=== PATIENT | female | born 1945 | race Caucasian/White ===

== ENCOUNTER → 2019-02-07 | Outpatient (CLI) | payer OTHER ==
--- NOTE | 2019-02-07 10:40 | 2DMMODE ---
[facility] [employer] [place] [address] 2 D/M-MODE ECHOCARDIOGRAM Name: ALEXSANDERMARCELLUS AMATO Room #: REG CL [facility]#: [id number] ������������� Admission: 02/07/19 ������������� Attend Phys: Ky Oneill MD, Discharge: ��� ������������� ��� Date of : 41 �������������������� �� Report #: [id number] �������� ��������������������������������������������[id number] THIS REPORT FOR: //name// APPROVED REPORT Study performed: 02/07/2019 08:20:21 EXAM: Comprehensive 2D, Doppler, and color-flow Echocardiogram Patient Location: Out-Patient Status: routine BSA: 1.58 HR: 69 bpm BP: 144/60 mmHg Rhythm: NSR Other Information Study Quality: Good Indications CAD, HTN. Hx: Pacemaker, stents. 2D Dimensions RVDd: 36.22 mm IVSd: 10.00 (7-11mm) LVOT Diam: 19.38 (18-24mm) LVDd: 35.51 mm PWd: 9.69 (7-11mm) Ascending Ao: 27.94 (22-36mm) LVDs: 20.42 (25-40mm) Aortic Root: 29.14 mm Volumes Left Atrial Volume (Systole) Single Plane 4CH: 50.05 mL Single Plane 2CH: 46.95 mL LA ESV Index: 33.00 mL/m2 Aortic Valve AoV Peak Jeff.: 1.87 m/s AO Peak Gr.: 12.18 mmHg LVOT Max P.20 mmHg AO Mean Gr.: 7.55 mmHg AO V2 Mean: 1.31 m/s LVOT Max V: 1.24 m/s AO V2 VTI: 41.21 cm BINDU Vmax: 1.97 cm2 Mitral Valve MV Decel. Time: 343.53 ms [facility] [address] [place] [address] 2 D/M-MODE ECHOCARDIOGRAM Name: WALDEMAR DIAMANTEMARCELLUS KENJI Room #: REG [facility]#: [id number] ������������� Admission: 02/07/19 ������������� Attend Phys: Ky Oneill MD, Discharge: ��� ������������� ��� Date of : 41 �������������������� �� Report #: [id number] �������� ��������������������������������������������[id number] MV PHT: 99.62 ms IVRT: 79.58 ms Pulmonary Valve PV Peak Jeff.: 1.07 m/s PV Peak Gr.: 4.56 mmHg Pulmonary Vein P Vein S: 0.46 m/s P Vein A: 0.34 m/s P Vein D: 0.28 m/s P Vein A Dur.: 76.1 msec P Vein S/D Ratio: 1.64 Tricuspid Valve TR Peak Jeff.: 2.80 m/s RAP Estimate: 5.00 mmHg TR Peak Gr.: 31.00 mmHg PA Pressure: 36.00 mmHg Left Ventricle The left ventricle is normal size. There is normal LV segmental wall motion. Mild concentric left ventricular hypertrophy. The left ventricular systolic function is normal. LVEF is 65%. Mild diastolic dysfunction is present (impaired relaxation pattern). Right Ventricle The right ventricle is normal size. The right ventricular systolic function is normal. Pacemaker lead is present in the right ventricle. Atria Left atrium is mildly dilated. The right atrium size is normal. Aortic Valve The aortic valve is normal in structure; mildly calcified. No aortic regurgitation is present. There is no aortic valvular stenosis. Mitral Valve The mitral valve is normal in structure. Moderate mitral annular calcification. Mild mitral regurgitation. No evidence of mitral valve stenosis. Tricuspid Valve The tricuspid valve is normal in structure. Mild to moderate tricuspid regurgitation. Estimated PAP is 35-40mmHg. Pulmonic Valve The pulmonary valve is normal in structure. Trace pulmonic [address] [address] 2 D/M-MODE ECHOCARDIOGRAM Name: ALEXSANDERMARCELLUS AMATO Room #: REG CL [facility]#: [id number] ������������� Admission: 02/07/19 ������������� Attend Phys: Ky Oneill MD, Discharge: ��� ������������� ��� Date of : 41 �������������������� �� Report #: [id number] �������� ��������������������������������������������[id number] regurgitation. Great Vessels The aortic root is normal in size. The ascending aorta is normal in size. IVC is normal in size and collapses >50% with inspiration. Pericardium There is no pericardial effusion. <Conclusion> The left ventricle is normal size. Mild concentric left ventricular hypertrophy. The left ventricular systolic function is normal. Mild diastolic dysfunction is present (impaired relaxation pattern). The right ventricle is normal size. Pacemaker lead is present in the right ventricle. Left atrium is mildly dilated. The aortic valve is normal in structure; mildly calcified. Moderate mitral annular calcification. Mild mitral regurgitation. Mild to moderate tricuspid regurgitation. Estimated PAP is 35-40mmHg. ��������������������������������������������� <ELECTRONICALLY SIGNED> ���������������������������������������� By: Wing Puga MD ��������������������������������������������� 02/07/19 1040 1040 1040 Wing Puga MD /INF
== END ==
LOC: CV 08:09
DX: I08.3 Combined rheumatic disorders of mitral, aortic and tricuspid valves (principal); I25.10 Atherosclerotic heart disease of native coronary artery without angina pectoris; I11.9 Hypertensive heart disease without heart failure; Z95.0 Presence of cardiac pacemaker; Z95.818 Presence of other cardiac implants and grafts

== ENCOUNTER 2020-10-02 18:46 | Emergency (ER) | payer OTHER ==
[~2020-10-02] VITALS: Ht 152.4 cm; Wt 52.2 kg
[2020-10-02] MEDS ORDERED: TYLENOL325 M1 PO (19:20)
[2020-10-02] MEDS ORDERED: ALPRAZOLAM 0.50.5 M1 PO (19:20)
[2020-10-02] MEDS ORDERED: NORVASC 2.5 MG2.5 M1 PO (19:21)
[2020-10-02] MEDS ORDERED: BREO ELLIPTA 11 EACH INH (19:21)
[2020-10-02] MEDS ORDERED: ASA81BEC PO (19:21)
[2020-10-02] MEDS ORDERED: LIPITOR 40 MG T40 M1 PO (19:21)
[2020-10-02] MEDS ORDERED: PLAVIX 75 MG TA75 MG PO (19:22)
[2020-10-02] MEDS ORDERED: BUPROPION XL300 MG PO (19:22)
[2020-10-02] MEDS ORDERED: CARVEDILOL12.5 MG PO (19:22)
[2020-10-02] MEDS ORDERED: COENZYME Q-10200 MG PO (19:22)
[2020-10-02] MEDS ORDERED: LEXAPRO20 MG PO (19:23)
[2020-10-02] MEDS ORDERED: ARICEPT10 M1 PO (19:23)
[2020-10-02] MEDS ORDERED: OMEGA-3 FISH1200 MG PO (19:24)
[2020-10-02] MEDS ORDERED: FERRETTS325 MG PO (19:24)
[2020-10-02] MEDS ORDERED: NORCO5 PO (19:24)
[2020-10-02] MEDS ORDERED: NAMENDA 10 MG T10 MG PO (19:25)
[2020-10-02] MEDS ORDERED: NITROSTAT0.4 M1 SUBLING (19:25)
[2020-10-02] MEDS ORDERED: MELATONIN3 M2 PO (19:25)
[2020-10-02] MEDS ORDERED: IMDUR 30 MG TAB30 M1 PO (19:25)
[2020-10-02] MEDS ORDERED: THERAGRAN-M PR1 EAC1 PO (19:26)
[2020-10-02] MEDS ORDERED: SEROQUEL 25 MG25 M1 PO (19:26)
[2020-10-02] MEDS ORDERED: PROTONIX40 M2 PO (19:26)
[2020-10-02] MEDS ORDERED: TIZANIDINE HCL2 M1 PO (19:27)
[2020-10-02] MEDS ORDERED: TRAMADOL 50 MG50 MG PO (19:28)
[2020-10-02 19:41] VITALS: BP 190/75
[2020-10-02] MEDS ORDERED: LOTENSIN10 MG PO (23:32)
== END 2020-10-02 20:00 ==
LOC: ER 18:46
DX: F32.9 Major depressive disorder, single episode, unspecified (principal); Z20.822 Contact with and (suspected) exposure to COVID-19; K21.9 Gastro-esophageal reflux disease without esophagitis; I10 Essential (primary) hypertension; J44.9 Chronic obstructive pulmonary disease, unspecified; Z90.710 Acquired absence of both cervix and uterus; Z98.890 Other specified postprocedural states; Z88.0 Allergy status to penicillin

== ENCOUNTER 2020-10-02 20:18 | Inpatient (IN) | payer OTHER ==
[~2020-10-02] VITALS: Ht 152.4 cm; Wt 56.7 kg
[~2020-10-02 20:18] MED LIST: ALPRAZOLAM 0.50.5 M1 PO; ARICEPT10 M1 PO; ASA81BEC PO; BREO ELLIPTA 11 EACH INH; BUPROPION XL300 MG PO; CARVEDILOL12.5 MG PO; COENZYME Q-10200 MG PO; FERRETTS325 MG PO; IMDUR 30 MG TAB30 M1 PO; LEXAPRO20 MG PO; LIPITOR 40 MG T40 M1 PO; MELATONIN3 M2 PO; NAMENDA 10 MG T10 MG PO; NITROSTAT0.4 M1 SUBLING; NORCO5 PO; NORVASC 2.5 MG2.5 M1 PO; OMEGA-3 FISH1200 MG PO; PLAVIX 75 MG TA75 MG PO; PROTONIX40 M2 PO; SEROQUEL 25 MG25 M1 PO; THERAGRAN-M PR1 EAC1 PO; TIZANIDINE HCL2 M1 PO; TRAMADOL 50 MG50 MG PO; TYLENOL325 M1 PO
[2020-10-02 21:46] VITALS: BP 188/90
[2020-10-02] MEDS ORDERED: LOTENSIN10 MG PO (23:32)
[2020-10-03 03:55] VITALS: BP 178/84
[2020-10-03 04:50] VITALS: BP 178/61
[2020-10-03 09:02] VITALS: BP 172/65
[2020-10-03 16:45] VITALS: BP 111/50
[2020-10-03 19:45] VITALS: BP 152/54
[2020-10-04 10:32] VITALS: BP 143/60
[2020-10-04 19:53] VITALS: BP 163/85
[2020-10-05 08:00] VITALS: BP 181/67
--- NOTE | 2020-10-05 10:14 | H ---
[facility] [place] [address] HISTORY AND PHYSICAL Name: MARCELLUS REZA Room #: 524B-B ADM IN M.R.#: [id number] Admission: 10/02/20 Attend Phys: Nathan Barrera DO Discharge: Date of : 41 Report #: [id number] THIS REPORT FOR: cc: FAM - Family physician unknown FAM - Family physician unknown Nathan Barrera DO ~ DOC #: [id number] NATHAN Barrera DO DATE OF SERVICE: 10/03/2020 ATTENDING: Nathan Barrera DO SALES ANALYTICS MANAGER: Roxanne Taylor M.D. and Linnea Montenegro, who are part of Sven Singh MD's hospitalist service. REASON FOR ADMISSION: Worsening depression, suicidal ideation. SOURCES OF INFORMATION: Records from [facility] where the patient originated, interview with the patient. I met her , Laith, briefly I intend to get collateral with him that I may be able to add as an addendum to this report. HISTORY OF PRESENT ILLNESS: This is a 75-year-old female. The patient does have gait difficulty, is wearing a blue paper scrub suit. She was able to ambulate with assistance to my office. The patient was pleasant. She does not have a good memory of what brought her to [facility] yesterday, so I reviewed the Emergency Room notes from there. In terms of information she told me on her own, she was born and raised in [place], [place]. She had one brother. Her brother of the cancer. Educational history, 10th grade. She said she got at age 12. I have heard some states allow marriage that young. She said she had two kids very young. That marriage did not last long. Currently, her , Laith, is her third . They have been quite some time. He is 10 years older. She states that he is very bright. In terms of medical history from the patient, she reports a stroke 2-3 years ago and she states the dementia diagnosis was given about 2 years ago. MEDICATIONS: The patient's home medications include acetaminophen, alprazolam, amlodipine, benazepril, aspirin, atorvastatin, Breo Ellipta, bupropion, carvedilol, Plavix, coenzyme Q, donepezil, escitalopram, which is Lexapro, ferrous sulfate. [place] 3-6-9, 1200 mg capsule. [place] 5/325, isosorbide mononitrate, melatonin, memantine, nitroglycerin, pantoprazole, Seroquel unspecified frequency, therapeutic multivitamin, tizanidine. The patient, I knows, sees Ky Oneill MD, at [facility]. [address] [address] HISTORY AND PHYSICAL Name: WALDEMAR SMITHLORRAINEMARCELLUS KENJI Room #: 524B-B ADM IN M.R.#: [id number] Admission: 10/02/20 Attend Phys: Nathan Barrera DO Discharge: Date of : 41 Report #: [id number] PAST SURGICAL HISTORY: The patient has an extensive procedural history. Carpal tunnel release. Pseudoaneurysm repair in 2006. Coronary angioplasty with stent 12/2006 and 02/2008. Bladder surgery 12/2015. Subclavian artery stent on 11/01/2012. Aortogram with runoff with AUTOMATION SOFTWARE ENGINEER in 09/2018. Peripheral vascular angiography with possible vascular intervention, 10/2018. Aortogram of extremity 06/18/2019. Repair of left femoral aneurysm, 06/18/2019. Coronary angiography, 01/16/2020. Percutaneous coronary intervention in 01/2020 and later that month 02/20/2020. Also, of note, there is a [employer] pacemaker placement listed on 04/12/2013. PAST MEDICAL HISTORY: Includes pulmonary hypertension, pulmonary nodule in left lower lobe, sick sinus syndrome, spinal arachnoid cyst at C5-C6, right subclavian artery stenosis, subclavian steal syndrome, superior mesenteric artery stenosis and syncope. FAMILY HISTORY: Brain cancer in her brother. Diabetes in her brother. Alcohol abuse in her brother. COPD in father. Heart failure in father. Coronary artery disease in father. Hypertension in father. Alcohol abuse in father. Alzheimer disease in mother. Hypertension in mother. Stroke in maternal grandmother. Coronary artery disease in maternal grandmother. Stroke in brother. Coronary artery disease in paternal grandmother. Coronary artery disease in brother. Hypertension in brother. Diabetes mellitus type 2 in brother. Hyperlipidemia in brother. Hypertension in brother. Stroke in brother. SOCIAL HISTORY: She is a former smoker, smoked 1 pack per day for 35 years, quit in 1994. No vaping use. No alcohol, no drug use. REVIEW OF SYSTEMS: From the [facility] ER noted is. CONSTITUTIONAL: Negative. HEENT: Negative. EYES: Negative. RESPIRATORY: Negative. CARDIOVASCULAR: Negative. GASTROINTESTINAL: Negative. ENDOCRINE: Negative. GENITOURINARY: Negative. MUSCULOSKELETAL: Negative. SKIN: Negative. NEUROLOGIC: Negative. All other systems reviewed were negative. Physical exam was grossly normal from [facility]. I found additional past medical history, which includes allergic rhinitis, [facility] [place] [address] HISTORY AND PHYSICAL Name: WALDEMAR SMITHBSMARCELLUS Room #: 524B-B ADM IN M.R.#: [id number] Admission: 10/02/20 Attend Phys: Nathan Barrera DO Discharge: Date of : 41 Report #: [id number] Alzheimer's disease, arthropathy, asthma, brachial neuritis, radiculitis, carotid artery plaque, cervical radiculopathy, chronic interstitial cystitis, COPD, coronary artery disease, dementia with behavioral disturbance, depression, dysmetabolic syndrome X, embolic stroke, essential hypertension, fibromyalgia. Additional medical history, herpes zoster, mixed hyperlipidemia, non-ST elevation myocardial infraction, osteoarthritis, osteoporosis, peripheral arterial disease. PSYCHIATRIC HISTORY: Generalized anxiety disorder, memory deficit, dementia as stated. Additionally, the story from [facility] was a 75-year-old female with history of depression, who presents to the ER because she says her depression has gotten worse and no longer wants to be alive. She has no plan to kill herself and denies a plan. The patient has a history of mild dementia, along with depression, which seems to exacerbate symptoms. She is seen in the past by Psychiatry at [facility] as well as Neurology at . She is on multiple medications for depression. She tried to get in to see Psychiatry at [facility], but was told she could not get an appointment until May. Blood pressures are elevated, but she told the ER, she did not take her medications in the morning. LABORATORY DATA: Urinalysis at [facility] showed trace protein, otherwise grossly normal. Alcohol less than 10. Hemogram: White count 10.27, H and H 16.2 and 52, platelets 348. Metabolic panel: Sodium 141, potassium 3.8, chloride 99, bicarbonate 35, anion gap of 8, calcium 10.1, glucose 80, total protein 7.9, albumin 4.5, alkaline phosphatase 121, ALT 22, AST 23, total bilirubin 0.2, BUN 13, creatinine 0.8, GFR non- is 70. Additional information from telemedicine assessment, she presented to [facility] ED with her , she was not sure why. She denied SI, HI, or psychosis, but remained distruaght. After discussion, she feels her does not want her anymore. She feels like a burden to him as she has been ill and severely depressed for 3 years. She was alert, tearful, partially oriented, unwilling to answer question. Lives with her in her home. They have three grown children who are supportive of her. She does not live with them, as they are out of state and have their own lives. She reports that she feels she would never attempt to kill herself, as it is a sin and would not then go to [facility]. She retired years ago from working. The patient did not want her to come back in her room due to the report that he does not really love her anymore despite his behavior around her. The patient also reported "I don't belong here anymore, I'm in too much pain." She reports her back pain level at a 7-8. [facility] [address] [place] [address] HISTORY AND PHYSICAL Name: MARCELLUS REZA Room #: 524B-B ADM IN M.R.#: [id number] Admission: 10/02/20 Attend Phys: Nathan Barrera, Discharge: Date of : 41 Report #: [id number] She reports no changes for sleep. Denies sexual trauma. Denies concerns of sexual function or sexuality. PHYSICAL EXAMINATION: VITAL SIGNS: Temperature 36.5, pulse 73, respirations 17, BP 117/65, O2 sat 92%. MUSCULOSKELETAL EXAM: Assisted gait with walker, unkempt, wearing paper scrub suit. MENTAL STATUS EXAMINATION: This is a well-developed, ill-appearing female apparently stated age. Attention fair. Concentration limited. Speech normal rate, volume, and tone. mood/affect- euthymic, congruent, Thought process, linear and goal directed. Thought content, focused on the present, but is wanting to go home tonight. No psychomotor agitation, no psychomotor retardation. Denied SI, HI. Denied auditory, visual, or tactile hallucinations. Memory noted to be impaired, not formally tested. Insight limited. Judgment limited. Fund of knowledge below average. FORMULATION: A 75-year-old female admitted for suicidal ideation. Also, some delusions about her . The patient has a history of dementia dating back 2 years and stroke 2-3 years. DIAGNOSES: Unspecified depression, major neurocognitive disorder, likely of cerebrovascular in origin with behavioral disturbance. The patient has had a number of morbidities. One, she is being treated for include hyperlipidemia, hypertension, and history of coronary artery disease. Medications in the hospital are Lexapro 10 mg p.o. daily, melatonin 3 mg p.o. at bedtime, donepezil 10 mg p.o. at bedtime, atorvastatin 40 mg p.o. at bedtime, memantine 10 mg p.o. b.i.d., lisinopril 10 mg p.o. daily, isosorbide mononitrate 30 mg oral daily, ferrous sulfate 325 mg oral daily, fish oil 1000 mg daily, Plavix 75 mg p.o. daily, bupropion 300 mg p.o. daily, aspirin 81 mg oral daily, amlodipine 5 mg oral daily, alprazolam 0.5 mg p.o. b.i.d., Protonix 40 mg oral daily, Pulmicort 0.5 inhaled twice a day, Coreg 12.5 mg oral b.i.d. P.r.n. Seroquel is ordered. PLAN: Patient is admitted to geriatric psychiatry. evaluate and stabilize. There seems to be a bit of polypharmacy going on. I see multiple antidepressants as a concerns with this patient. There is alprazolam listed. She is on several antihypertensives, as her blood pressure is currently really high. I think it will be reasonable to start to truncate down her medication burden. I really do need to talk to her and see what the living concerns are. It sounds like they probably as a couple will be best [place] [address] HISTORY AND PHYSICAL Name: MARCELLUS REZA Room #: 52-B ADM IN M.R.#: [id number] Admission: 10/02/20 Attend Phys: Nathan Barrera DO Discharge: Date of : 41 Report #: [id number] setting. I will also give an entry check on that. Time spent on this case is greater than 60 minutes, greater than 50% of time was in review of records and coordination of care. STRENGTHS: She is insured, has supportive family. WEAKNESSES: She has a neurodegenerative disorder, multiple morbidities. DO JOLANTA Bergeron/MASOOD/LISA <ELECTRONICALLY SIGNED> By: Nathan Barrera DO 10/05/20 1014 1430 1629 Nathan Barrera DO /nt
[2020-10-05 13:33] VITALS: BP 114/43
[2020-10-05 16:30] VITALS: BP 143/80
[2020-10-05 19:34] VITALS: BP 131/46
[2020-10-06 09:23] VITALS: BP 186/68
[2020-10-06 14:28] VITALS: BP 110/51
[2020-10-06 20:10] VITALS: BP 96/71
[2020-10-06 20:30] VITALS: BP 96/71
[2020-10-07 09:03] VITALS: BP 192/69
[2020-10-07 20:45] VITALS: BP 123/51
[2020-10-07 21:00] VITALS: BP 123/51
[2020-10-08 09:39] VITALS: BP 195/88
[2020-10-08 19:11] VITALS: BP 156/105
[2020-10-09] MEDS ORDERED: NORVASC5 MG PO (09:30)
[2020-10-09] MEDS ORDERED: LEXAPRO 10 MG T10 MG PO (09:31)
[2020-10-09] MEDS ORDERED: SEROQUEL 25 MG25 M1 PO (09:32)
[2020-10-09 09:51] VITALS: BP 177/67
[2020-10-09 10:14] VITALS: BP 177/67
--- NOTE | 2020-10-10 22:17 | D ---
[facility] [place] [address] DISCHARGE SUMMARY Name: MARCELLUS REZA Room #: 524B-B [facility] IN M.R.#: [id number] Admission: 10/02/20 Attend Phys: Nathan Barrera DO Discharge: 10/09/20 Date of : 41 Report #: [id number] THIS REPORT FOR: cc: FAM - Family physician unknown FAM - Family physician unknown Nathan Barrera DO ~ DOC #: [id number] NATHAN Barrera DO DATE OF SERVICE: 10/09/2020 INPATIENT PSYCHIATRIC DISCHARGE SUMMARY ATTENDING PSYCHIATRIST: Nathan Barrera DO HEALTH CLINICIAN AT TIME OF DISCHARGE: Iliana Hartman MD DISCHARGE DIAGNOSES: Major neurocognitive disorder without behavioral disturbance, major depressive disorder, moderate degree, improved. Medical comorbidities include hypertension, history of coronary artery disease with stents, sinus syndrome, gastroesophageal reflux disease, fibromyalgia, chronic obstructive pulmonary disease, hyperlipidemia, non-ST elevated myocardial infarction, osteoporosis, pulmonary hypertension. The patient is discharging to her private home mental health and assisted living placement was recommended. They does not wish to pursue this at this time, the and . DIET: Regular. ACTIVITY LEVEL: As tolerated. The patient will be getting aftercare as follows, Dr. Fadia Garcia on 11/09/2020 at 1400. She should see her primary care physician within 1 month, who is not noted. DISCHARGE MEDICATIONS: 1. Aspirin 81 mg oral daily for heart protection. 2. Atorvastatin 40 mg p.o. daily for hyperlipidemia. 3. Breo Ellipta 1 inhalation daily for COPD. 4. Carvedilol 12.5 mg oral twice daily. 5. Plavix 75 mg oral daily for stroke prevention. 6. Donepezil 10 mg oral b.i.d. for cognitive enhancement. 7. Ferrous sulfate 325 mg oral daily, iron supplementation. 8. [place] 3 fish oil 1200 mg oral daily. 9. Isosorbide mononitrate 30 mg a day for cardiovascular disease. 10. Melatonin 3 mg oral at bedtime for sleep as needed. 11. Namenda 10 mg oral twice daily for cognitive enhancement. 12. Multivitamin daily. 13. Tramadol 50 mg oral 2 times a day. 14. Benazepril 10 mg oral daily for hypertension. 15. Norvasc 5 mg oral daily for hypertension. [facility] [address] [place] [address] DISCHARGE SUMMARY Name: MARCELLUS REZA Room #: 524B-B [facility] IN ..#: [id number] Admission: 10/02/20 Attend Phys: Nathan Barrera DO Discharge: 10/09/20 Date of : 41 Report #: [id number] 16. Lexapro 10 mg oral daily for depression. 17. Seroquel 25 mg oral q. 6 hours p.r.n. for anxiety and agitation. The patient was given crisis suicide hotline information. She voiced understanding of this. Laboratories this admission, came to us from [facility], so only negative COVID test. REASON FOR ADMISSION: Back on 10/02/2020, a 75-year-old female, from [facility] residing there due to increasing depression, suicidal ideation. HOSPITAL COURSE: The patient was admitted to the geriatric psychiatry unit. Initially, she was rather tearful, labile, had several family meetings with her . She tends to have a sense of need to impress her . Once we got past this it was discussed that she really has been unable to take care of her. She does need 24/7 care due to her dementia. feeling that somewhat mitigated this. Neither of them, she will. At this point, the 's 10 years older and I had actually recommended they both go to assisted living which they dont have funding for. At the day of discharge, the patient was not suicidal or homicidal, displaying euthymic affect. VITAL SIGNS: Temperature 36.5, pulse 71, respirations 17, BP 177/67, blood pressure was hard to get down whole admission given her dementia. O2 sat 93%. MUSCULOSKELETAL: The patient wears glasses, slightly kyphotic station. MENTAL STATUS EXAMINATION: This is a well-developed, appearing female. Attention limited. Concentration limited. Speech normal rate, volume, and tone. Thought process: Linear and goal directed. Thought content: Focused on meeting with her . Denied SI, HI. Denied auditory, visual or tactile hallucinations. Mood and affect was congruent. Euthymic fair range. Insight and judgment limited. Fund of knowledge average. Prognosis for this patient is guarded due to her neurodegenerative disorder and lack of facility placement. DO JOLANTA Bergeron/SHIREEN/FREDI [address] [address] DISCHARGE SUMMARY Name: ALEXSANDERMARCELLUS AMATO Room #: 524B-B DIS IN M.R.#: [id number] Admission: 10/02/20 Attend Phys: Nathan Barrera DO Discharge: 10/09/20 Date of : 41 Report #: [id number] <ELECTRONICALLY SIGNED> By: Nathan Barrera DO 10/10/20 2217 220 2249 Nathan Barrera DO /nt
== END 2020-10-09 11:17 | disposition home or self-care (01) | DRG 57 ==
LOC: SBH 20:18
PROVIDERS: ADMIT Psychiatry & Neurology Psychiatry; ATTEND Psychiatry & Neurology Psychiatry
DX: G30.9 Alzheimer's disease, unspecified (principal); F01.50 Vascular dementia, unspecified severity, without behavioral disturbance, psychotic disturbance, mood disturbance, and anxiety; F32.1 Major depressive disorder, single episode, moderate; I25.10 Atherosclerotic heart disease of native coronary artery without angina pectoris; I49.5 Sick sinus syndrome; E78.5 Hyperlipidemia, unspecified; I10 Essential (primary) hypertension; K21.9 Gastro-esophageal reflux disease without esophagitis; J44.9 Chronic obstructive pulmonary disease, unspecified; F02.80 Dementia in other diseases classified elsewhere, unspecified severity, without behavioral disturbance, psychotic disturbance, mood disturbance, and anxiety; I73.9 Peripheral vascular disease, unspecified; M79.7 Fibromyalgia; F41.1 Generalized anxiety disorder; M81.0 Age-related osteoporosis without current pathological fracture; F10.10 Alcohol abuse, uncomplicated; D64.9 Anemia, unspecified; M16.11 Unilateral primary osteoarthritis, right hip; F29 Unspecified psychosis not due to a substance or known physiological condition; Y90.9 Presence of alcohol in blood, level not specified; Z20.822 Contact with and (suspected) exposure to COVID-19; I25.2 Old myocardial infarction; Z79.899 Other long term (current) drug therapy; Z87.891 Personal history of nicotine dependence; Z95.0 Presence of cardiac pacemaker; Z86.73 Personal history of transient ischemic attack (TIA), and cerebral infarction without residual deficits
CPT/HCPCS: 10880